=== PATIENT | male | born 1980 | race Caucasian/White ===

== ENCOUNTER 2021-09-06 12:50 | Emergency (ER) | payer OTHER, MEDICAID, SELFPAY ==
[2021-09-06 12:51] VITALS: BP 141/125; PULSE 132; RESP 32; TEMP 36.6; O2SAT 97; BMI 24.3
--- NOTE | 2021-09-06 13:18 | EX.ED.GENINJ ---
HPI History of Present Illness Chief Complaint: Back Detail of Chief Complaint: Fell injuring his left posterior rib cage on Monday. Informant: patient Onset/Context/Timing Onset: Days Mechanism/Context: Blunt Injury and Fall Quality of Pain: Sharp Current Severity: Moderate Maximum Severity: Moderate Associated Symptoms Associated Symptoms: Negative for Parasthesias, Weakness, Loss of function, Inability to ambulate, Loss of consciousness and Amnesia Narrative Narrative: 40-year-old male on Monday slipped on steps fell injuring his left posterior ribs. He denies any LOC. He was trying to lift something over his head and felt a pop in the left posterior rib cage today with increased pain. He denies shortness of breath. Worse with movement. He denies hitting his head. No other injuries. No LOC. Prior similar symptoms: No Recent Illness/Hospitalization: No PFSH PFSH Medical History no medical history no medical history Home Medications hydrocodone-acetaminophen 1 tab PO Q6H PRN 4 Days #14 tab 09/06/21 [Rx Last Taken Unknown] Allergy/AdvReac Type Severity Reaction Status Date / Time No Known Allergies Allergy Verified 09/06/21 12:54 Social History Smoking Status: Unknown if ever smoked ROS ROS ED ROS Narrative Denies. Review of Systems ROS Unobtainable: Denies due to encephalopathy Constitutional Constitutional ED: Denies fever(s) Eyes Eyes: Denies change in vision ENT ENT ED: Denies ear pain Cardiovascular Cardiovascular: Denies chest pain Respiratory/Chest Respiratory/Chest: Denies dyspnea Gastrointestinal Gastrointestinal: Denies abdominal pain Genitourinary Genitourinary ED: Denies dysuria Musculoskeletal Musculoskeletal: Denies myalgias Integumentary Denies rash Neurologic Neurologic: Denies headache(s) Psychiatric Psychiatric: Denies depression Endocrine Endocrinology: Denies polyuria Hematologic/Lymphatic Hematologic/Lymphatic: Denies easy bruising Allergic/Immunologic Allergic/Immunologic ED: Denies urticaria EXAM Physical Exam Narrative Exam Narrative: Middle-age male complaining of pain in his left posterior rib cage. Vital signs initial blood pressure 141/125 but secondary to pain as is his pulse. He is in no respiratory distress. He is afebrile. Exam normal except tachycardia heart rate of 120. And reproducible pain over his left posterior rib cage. There is no ecchymosis or bruising no subcu air or crepitance. Spine nontender. Lungs are clear equal symmetrical. Heart tachycardic. Anterior chest wall nontender. Abdomen soft nontender. Moving all 4 extremities. Neurovascularly intact. Full range of motion. Neurologically is awake alert with no focal motor deficits. GCS of 15. Const Vital Signs: 09/06/21 12:51 Temperature 97.8 F Temperature Source Oral Pulse Rate 132 H Respiratory Rate 32 H Blood Pressure 141/125 H Blood Pressure Mean 130 Pulse Ox 97 HEENT atraumatic; Negative for trauma or tenderness Eyes PERRL and EOMs intact bilaterally Neck full ROM General: Negative for tenderness Chest Wall inspection of chest normal and palpation of chest normal Resp normal respiratory effort and clear to auscultation bilaterally Auscultation: Negative for rales, rhonchi or wheezes Cardio regular rhythm, S1 normal heart sound, S2 normal heart sound and no murmurs Rate: tachycardic GI normal to inspection, nondistended, normoactive bowel sounds, non-tender, non-distended and no masses Auscultation: normoactive bowel sounds Palpation: soft; Negative for tender, guarding or rebound tenderness present Back/Spine normal to inspection and no thoracic nor lumbar tenderness Back/Spine Narrative: Tenderness left lower posterior ribs. General Back: Negative for CVA tenderness Thoracic Spine / Upper Back: Negative for thoracic spinal tenderness Extremity normal to inspection and full ROM General Extremety ED: Negative for deformity, edema or tenderness General Extremity: Negative for deformity or edema Neuro oriented x3, CN's II-XII intact bilaterally, moves all extremities and no focal motor deficits Sensorium / Orientation: alert, oriented to person, oriented to place and oriented to time; Negative for orientation impaired, lethargic or stuporous Motor Exam: strength 5/5 throughout Psych mental status grossly normal Skin no rashes or lesions noted, no wounds and no jaundice MDM MDM MDM Narrative Medical decision making narrative: 40-year-old male concern for left posterior rib fractures. Chest x-ray being obtained 2 views AP and lateral. He was treated with IM morphine and p.o. Zofran for pain. Repeat exam is doing better. Him and I discussed given the x-rays are negative he still may have 1 or 2 cracked ribs that just do not show up on the film. Radiography Diagnostic Testing: Chest x-ray 2 views AP and lateral interpreted by myself shows shows no obvious fracture. No pneumothorax. Read as normal. Normal cardiac silhouette. Normal lung broderick. I did go over the films with the patient. Discharge Plan Triage Chief Complaint: Back ED Provider: Solomon Flynn Dx/Rx/DC Orders Clinical Impression: Fracture, rib Instructions: ED Rib Fracture Prescriptions: New hydrocodone-acetaminophen 5-325 mg tablet 1 tab PO Q6H PRN (Reason: pain) 4 Days Qty: 14 RF: 0 Primary Care Provider: [facility] Referrals: [facility] [Primary Care Provider] - 10-14 Days if not better Activity Restrictions/Additional Instructions: Even though your x-rays are read as normal. You could still have 1-2 cracked ribs or the area could just be severely bruised. Ice to the area. Use a pillow to brace the area. Motrin for pain and inflammation. [place] for more severe pain. Do not drink or drive while using the [place]. Off work next 3 days as needed. Disposition Disposition: Home, Self Care
[2021-09-06] MEDS: morphine 10 MG/ML Syringe IM (13:26)
[2021-09-06] MEDS: Ondansetron ODT 4 MG Tablet PO (13:27)
--- NOTE | 2021-09-06 13:40 | RAD_ITS ---
STUDY: X-RAY CHEST REASON FOR EXAM: Male, 40 years old. Left posterior rib injury TECHNIQUE: PA and lateral views of the chest. COMPARISON: None. FINDINGS: Hyperinflation. The lungs are clear. There is no demonstrated pleural abnormality. Normal size heart. Normal mediastinum and kaleb. Normal visualized pulmonary arteries. Normal visualized aortic arch and descending thoracic aorta. Normal visualized thoracic spine. Normal visualized ribs, clavicles, and shoulders. There is no demonstrated abnormality of the visualized soft tissue structures of the upper abdomen. RAD/Chest PA and Lateral IMPRESSION: Normal x-ray examination of the chest. Electronically Signed: Mack Hernandez MD at 14:09 EDT , Service support ,
== END 2021-09-06 14:25 | disposition home or self-care (01) ==
PROVIDERS: Emergency Provider Emergency Medicine
DX: S22.42XA Multiple fractures of ribs, left side, initial encounter for closed fracture (principal); W10.9XXA Fall (on) (from) unspecified stairs and steps, initial encounter; Y93.9 Activity, unspecified; Y92.9 Unspecified place or not applicable
CPT/HCPCS: 71046; 96372; 99283